=== PATIENT | male | born 1940 | race Caucasian/White ===

== ENCOUNTER 2017-04-19 20:42 | Emergency (ER) | payer MEDICARE, OTHER ==
--- NOTE | 2017-04-20 04:12 | ER ---
DATE SEEN: 04/19/2017 TIME SEEN: 5 hours. CHIEF COMPLAINT: Pain, left ankle. HISTORY OF PRESENT ILLNESS: Mr. Gay is a 76-year-old male, complaining of pain to the left ankle that started tonight after walking his dog. He typically walks several miles a day with a dog and tonight with no specific trauma, he developed pain a few hours later. The pain is [id number], worse with weightbearing. No radiation. PAST MEDICAL HISTORY: Hypertension and type 2 diabetes. ALLERGIES: No known allergies. PHYSICAL EXAMINATION: GENERAL: He is not in any distress. VITAL SIGNS: He weighs 95 kg and he has a blood pressure 153/63. EXTREMITIES: Left ankle did not show any obvious swelling. There was some tenderness on the dorsum of the foot and the anterior aspect of the ankle, but it was full range of motion and stable. DIAGNOSTIC STUDIES: X-ray was negative. IMPRESSION: 1. Pain foot. 2. Ankle sprain. PLAN: Rest, ice, Tylenol and elevation. /[id number] [facility] PELON/SAMIRA
--- NOTE | 2017-04-20 12:51 | CR ---
INDICATION: Pain with weightbearing after going upstairs - across ankle joint. LEFT ANKLE: Three views of the left ankle were obtained 04/19/2017 and revealed the ankle mortise to appear intact with minimal osteoarthritic appearing changes noted off the medial and lateral malleoli. A tiny calcific or bony density is noted adjacent to the talus, inferior to the medial malleolus, and may represent a minimal soft tissue dystrophic calcification from a previous injury. An acute fracture or dislocation was not identified. IMPRESSION: 1. 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 2. No acute fracture or dislocation. MTDD
== END 2017-04-19 21:14 | disposition home or self-care (01) ==
LOC: FB.ED 20:42
DX: S93.402A Sprain of unspecified ligament of left ankle, initial encounter (principal); E11.9 Type 2 diabetes mellitus without complications; I10 Essential (primary) hypertension; Y93.K1 Activity, walking an animal
CPT/HCPCS: 73610-LT; 99283

== ENCOUNTER 2020-08-19 21:18 | Emergency (ER) | payer MEDICARE, OTHER ==
[2020-08-19] MEDS ORDERED: Dextrose 5% in Water 1,000 ML IV SCH (22:00)
--- NOTE | 2020-08-19 23:17 | EDM.PDOC ---
ED HPI GENERAL MEDICAL PROBLEM - General Chief Complaint: Diabetic Complaint Stated Complaint: double vision Time Seen by Provider: 08/19/20 21:35 Source of Information: Reports: Patient, Family History Limitations: Reports: No Limitations - History of Present Illness INITIAL COMMENTS - FREE TEXT/NARRATIVE: Patient presented to the ED because of hypoglycemic episode. He was watching TV when all of a sudden he had a brief episode of double vision No other neuro deficits notes. He has a GCS of 15 upon his arrival in the ED. - Related Data Allergies Allergy/AdvReac Type Severity Reaction Status Date / Time No Known Allergies Allergy Verified 04/19/17 20:54 Home Meds: Home Meds Aspirin [Halfprin] 81 mg PO DAILY 01/15/14 [History] Glimepiride 1 mg PO BRK 01/15/14 [History] Hydrochlorothiazide/Lisinopril [Lisinopril-HCTZ 20-25 MG] 1 tab PO BID 01/15/14 [History] Pioglitazone [Actos] 30 mg PO DAILY 01/15/14 [History] Simvastatin 40 mg PO DAILY 01/15/14 [History] amLODIPine Besylate [Amlodipine Besylate] 10 mg PO DAILY 01/15/14 [History] Alpha Lipoic Acid 600 mg PO DAILY 08/19/20 [History] Cholecalciferol (Vitamin D3) [Vitamin D3] 1 cap PO DAILY 08/19/20 [History] Cyanocobalamin (Vitamin B-12) [B-12] 1 tab PO DAILY 08/19/20 [History] Donepezil HCl 10 mg PO BEDTIME 08/19/20 [History] Escitalopram [Lexapro] 10 mg PO DAILY 08/19/20 [History] Hypromellose [Genteal Mild] 1 drop EYEBOTH BID PRN 08/19/20 [History] Latanoprost/Pf [Latanoprost 0.005% Eye Drop] 1 drop EYEBOTH DAILY 08/19/20 [His tory] Minocycline [Minocin] 100 mg PO BID PRN 08/19/20 [History] Multivitamin [Multi-Vitamin Daily] 1 tab PO DAILY 08/19/20 [History] Tamsulosin [Flomax] 0.4 mg PO DAILY 08/19/20 [History] Vitamin B Complex with C [Super B Complex With C] 1 cap PO DAILY 08/19/20 [History] traZODone 75 mg PO BEDTIME 08/19/20 [History] Past Medical History HEENT History: Reports: Impaired Vision, Other (See Below) Other HEENT History: wears glasses Cardiovascular History: Reports: Aneurysm, Bypass, High Cholesterol, Hyper tension Musculoskeletal History: Reports: Osteoarthritis Psychiatric History: Reports: Dementia Endocrine/Metabolic History: Reports: Diabetes, Type II - Infectious Disease History Infectious Disease History: Reports: Mumps - Past Surgical History Cardiovascular Surgical History: Reports: Aneurysm, Vascular Surgery Social & Family History - Family History Family Medical History: No Pertinent Family History - Tobacco Use Tobacco Use Status *Q: Never Tobacco User - Caffeine Use Caffeine Use: Reports: Coffee, Soda - Recreational Drug Use Recreational Drug Use: No - Living Situation & Occupation Living situation: Reports: Occupation: Retired ED ROS GENERAL - Review of Systems Review Of Systems: See Below Constitutional: Reports: No Symptoms HEENT: Reports: No Symptoms Respiratory: Reports: No Symptoms Cardiovascular: Reports: No Symptoms Endocrine: Reports: Low Glucose GI/Abdominal: Reports: No Symptoms, Abdominal Pain Musculoskeletal: Reports: No Symptoms, Neck Pain Skin: Reports: No Symptoms Neurological: Reports: No Symptoms, Confusion Psychiatric: Reports: No Symptoms ED EXAM GENERAL NO PERIP PULSE - Physical Exam Exam: See Below Exam Limited By: No Limitations General Appearance: No Apparent Distress Ears: Normal External Exam, Normal Canal, Hearing Grossly Normal Nose: Normal Inspection, Normal Mucosa, No Blood Throat/Mouth: Normal Inspection, Normal Lips, Normal Teeth, Normal Oropharynx, Normal Voice Head: Atraumatic, Normocephalic Neck: Normal Inspection, Supple, Non-Tender, Full Range of Motion Respiratory/Chest: No Respiratory Distress, Lungs Clear, Normal Breath Sounds Cardiovascular: Normal Peripheral Pulses, Regular Rate, Rhythm, No Edema, No Gallop GI/Abdominal: Normal Bowel Sounds, Soft, Non-Tender, No Organomegaly Back Exam: Normal Inspection, Full Range of Motion Extremities: Normal Inspection, Normal Range of Motion Neurological: Alert, Oriented, CN II-XII Intact Course - Vital Signs Text/Narrative:: Lab and Head CT result was reviewed and discussed with patient and his D5.9 NS 1 L bolus Last Recorded V/S: Last Vital Signs Temp 36.0 C L 08/19/20 21:31 Pulse 67 08/19/20 21:31 Resp 18 08/19/20 21:31 BP 106/45 L 08/19/20 21:31 Pulse Ox 99 08/19/20 21:31 - Orders/Labs/Meds Orders: Active Orders 24 hr Category Date Time Status Head wo Cont [CT] Stat Exams 08/19/20 21:51 Ordered Dextrose 5% in Water 1,000 ml Med 08/19/20 22:00 Ordered IV ASDIRECTED Medication Orders Dextrose/Water (Dextrose 5% In Water) 1,000 mls @ 999 mls/hr IV ASDIRECTED EDILSON Last Admin: 08/19/20 22:13 Dose: 999 mls/hr Documented by: JOEY Labs: Laboratory Tests 08/19/20 08/19/20 08/19/20 Range/Units 21:22 22:00 22:00 WBC 9.1 (3.2-10.1) x10-3/uL RBC 3.48 L (3.90-5.90) x10(6)uL Hgb 10.9 L (12.9-17.7) g/dL Hct 32.8 L (38.3-50.1) % MCV 94.4 (80.8-98.7) fL MCH 31.5 (27.0-33.3) pg MCHC 33.4 (28.7-35.3) g/dL RDW 13.9 (12.4-15.0) % Plt Count 199 (117-477) x10(3)uL MPV 8.0 (6.7-11.0) fL Add Manual Diff Yes Neutrophils % (Manual) 87 H (46-82) % Lymphocytes % (Manual) 8 L (13-37) % Monocytes % (Manual) 5 (4-12) % Sodium 134 L (135-145) mmol/L Potassium 4.5 (3.5-5.3) mmol/L Chloride 101 (100-110) mmol/L Carbon Dioxide 17 L (21-32) mmol/L BUN 62 H (7-18) mg/dL Creatinine 2.6 H* (0.70-1.30) mg/dL Est Cr Clr Drug Dosing TNP Estimated GFR (MDRD) 24 L (>60) BUN/Creatinine Ratio 23.8 H (9-20) Glucose 118 H (80-116) mg/dL POC Glucose 64 L (80-116) mg/dL Calcium 8.8 (8.6-10.2) mg/dL Meds: Medications Generic Name Dose Route Start Last Admin Trade Name Gio PRN Reason Stop Dose Admin Dextrose/Water 1,000 mls @ 999 mls/hr 08/19/20 22:00 08/19/20 22:13 Dextrose 5% In Water IV 999 mls/hr ASDIRECTED EDILSON Administration Departure - Departure Time of Disposition: 23:25 Disposition: Home, Self-Care 01 Condition: Good Clinical Impression: Hypoglycemia, Dehydration, LISSA (acute kidney injury) - Discharge Information Instructions: Acute Kidney Injury, Adult, Hypoglycemia, Type 2 Diabetes Mellitus, Diagnosis, Adult, [id number], Dehydration, Elderly, [id number] Referrals: Castro Kenyon MD [Primary Care Provider] - Forms: ED Department Discharge Additional Instructions: Please read discharge instructions on dehydration,acute kidney injury, Drink at least 2 liters of water daily Do not take your water pill HCTC-hydrochlorothiazide and losartan for 3 days. It will make you more dehydrate. Follow up on Sunday in the clinic so they can recheck your kidney function Sepsis Event Note (ED) - Evaluation Sepsis Screening Result: No Definite Risk - Focused Exam Vital Signs: Vital Signs Temp Pulse Resp BP Pulse Ox 08/19/20 21:31 36.0 C L 67 18 106/45 L 99 - My Orders Last 24 Hours: My Active Orders 08/19/20 21:51 Head wo Cont [CT] Stat 08/19/20 22:00 Dextrose 5% in Water 1,000 ml IV ASDIRECTED - Assessment/Plan Last 24 Hours: My Active Orders 08/19/20 21:51 Head wo Cont [CT] Stat 08/19/20 22:00 Dextrose 5% in Water 1,000 ml IV ASDIRECTED
== END 2020-08-19 23:35 | disposition home or self-care (01) ==
LOC: FB.ED 21:18
DX: E11.649 Type 2 diabetes mellitus with hypoglycemia without coma (principal); E86.0 Dehydration; N17.9 Acute kidney failure, unspecified; E78.00 Pure hypercholesterolemia, unspecified; I10 Essential (primary) hypertension; Z95.1 Presence of aortocoronary bypass graft; Z79.82 Long term (current) use of aspirin; Z79.899 Other long term (current) drug therapy
CPT/HCPCS: 36415; 70450; 80048; 82947; 85025; 99283; 99285-25; J7060

== ENCOUNTER 2021-09-27 10:27 | Emergency (ER) | payer MEDICARE, OTHER ==
[2021-09-27] MEDS ORDERED: Sodium Chloride 0.9% 10 ML Syringe FLUSH PRN (10:32)
[2021-09-27] MEDS ORDERED: Albuterol/Ipratropium 3.0-0.5 MG/3 ML Neb Soln NEB ONE (10:34)
[2021-09-27] MEDS ORDERED: Albuterol/Ipratropium 3.0-0.5 MG/3 ML Neb Soln ONE (10:35)
[2021-09-27 11:05] LABS: BASE EXCESS VENOUS,POC -1 mmol/L (-2 - 3+); PCO2 VENOUS,POC 28 mmHg (41-51)
[2021-09-27 11:08] LABS: ESTIMATED GFR 20 mL/min (>60)
[2021-09-27] MEDS ORDERED: Dexamethasone 4 MG/ML SDV IVPUSH STA (11:10)
[2021-09-27] MEDS ORDERED: Albuterol/Ipratropium 3.0-0.5 MG/3 ML Neb Soln NEB STA (11:11)
[2021-09-27] MEDS ORDERED: cefTRIAXone 1 GM Vial IVPUSH STA (11:48)
[2021-09-27] MEDS ORDERED: Azithromycin 500 MG in Sodium Chloride 0.9% 250 ML IV STA (11:48)
[2021-09-27] MEDS ORDERED: REMDESIVIR 200 MG in Sodium Chloride 0.9% 250 ML IV ONE (12:04)
[2021-09-27] MEDS ORDERED: Albuterol 0.083% 2.5 MG/3 ML Neb Soln NEB PRN (12:35)
[2021-09-27] MEDS ORDERED: Ondansetron 4 MG/2 ML SDV IV PRN (12:35)
[2021-09-27] MEDS ORDERED: Furosemide 40 MG/4 ML VIAL IVPUSH ONE (12:44)
[2021-09-27] MEDS ORDERED: Enoxaparin 30 MG/0.3 ML Syringe SUBCUT SCH (13:00)
[2021-09-27] MEDS ORDERED: Acetaminophen 500 MG Tab PO STA (14:31)
[2021-09-27] MEDS ORDERED: Albuterol/Ipratropium 3.0-0.5 MG/3 ML Neb Soln INH SCH (17:00)
== END 2021-09-27 17:10 ==
LOC: FB.ED 10:27 → UNDOADMIN 12:35 → FB.MS 12:35 → FB.ED 17:10
DX: U07.1 COVID-19 (principal); J18.9 Pneumonia, unspecified organism; I13.0 Hypertensive heart and chronic kidney disease with heart failure and stage 1 through stage 4 chronic kidney disease, or unspecified chronic kidney disease; I50.9 Heart failure, unspecified; N18.4 Chronic kidney disease, stage 4 (severe); I25.5 Ischemic cardiomyopathy; I25.10 Atherosclerotic heart disease of native coronary artery without angina pectoris; E11.9 Type 2 diabetes mellitus without complications; Z79.899 Other long term (current) drug therapy
CPT/HCPCS: 36415; 71045; 80053; 82248; 83605; 83880; 84484; 85025; 85379; 93005; 93010; 94640; 96365; 96367; 96374; 96375; 99285; 99285-25; A9270-GY; J0248; J0456; J0696; J1100; J1650; J1940; J3490; J7050; J7620

== ENCOUNTER 2021-10-26 14:40 | Observation (INO) | payer MEDICARE, OTHER ==
[2021-10-26] MEDS ORDERED: Pantoprazole 40 MG Vial IVPUSH ONE (15:21)
[2021-10-26 15:33] LABS: ESTIMATED GFR 21 mL/min (>60)
[2021-10-26] MEDS ORDERED: Furosemide 20 MG/2 ML VIAL IVPUSH ONE ×2 (17:10→19:18)
[2021-10-26] MEDS ORDERED: Ondansetron 4 MG/2 ML SDV IV PRN (17:10)
[2021-10-26] MEDS ORDERED: Furosemide 40 MG/4 ML VIAL ONE (17:54)
[2021-10-26] MEDS: Sodium Chloride 0.9% 250 ML IV SCH (22:00)
[2021-10-27] MEDS ORDERED: Furosemide 20 MG/2 ML VIAL ONE ×2 (00:50→05:25)
[2021-10-27] MEDS: Sodium Chloride 0.9% 250 ML IV SCH ×2 (01:25→06:05)
[2021-10-27] MEDS: Sodium Chloride 0.9% 10 ML Syringe FLUSH PRN ×2 (01:40→03:10)
[2021-10-27] MEDS ORDERED: hydrALAZINE 20 MG/ML SDV IVPUSH ONE (03:02)
[2021-10-27 06:45] LABS: ESTIMATED GFR 21 mL/min (>60)
[2021-10-27] MEDS ORDERED: Pantoprazole 40 MG Vial IVPUSH SCH (09:00)
== END 2021-10-27 12:10 | disposition home health service (06) ==
LOC: FB.ED 14:40 → UNDOADMOB 17:01 → FB.MS 17:01 → UNDOADMOB 17:11
PROVIDERS: ADMIT Family Medicine; ATTEND Family Medicine
DX: D50.0 Iron deficiency anemia secondary to blood loss (chronic) (principal); I48.91 Unspecified atrial fibrillation; E78.00 Pure hypercholesterolemia, unspecified; G30.1 Alzheimer's disease with late onset; F02.80 Dementia in other diseases classified elsewhere, unspecified severity, without behavioral disturbance, psychotic disturbance, mood disturbance, and anxiety; E11.22 Type 2 diabetes mellitus with diabetic chronic kidney disease; I50.43 Acute on chronic combined systolic (congestive) and diastolic (congestive) heart failure; N18.32 Chronic kidney disease, stage 3b; I65.29 Occlusion and stenosis of unspecified carotid artery; I25.10 Atherosclerotic heart disease of native coronary artery without angina pectoris; Z79.899 Other long term (current) drug therapy; Z79.82 Long term (current) use of aspirin; Z86.16 Personal history of COVID-19; Z98.890 Other specified postprocedural states
CPT/HCPCS: 36415; 36430; 71045; 80053; 81001; 82272; 83880; 84484; 85025; 85610; 85730; 86850; 86900; 86901; 86920; 86922; 93005; 96374; 96375; 96376; 99285-25; C9113; G0378; J0360; J1940; J3490; J7050; P9016